=== PATIENT | male | born 1970 | race Caucasian/White ===

== ENCOUNTER 2016-10-19 13:26 | Emergency (ER) | payer BC, OTHER ==
[2016-10-19 13:45] VITALS: BP 144/93; PULSE 82; BMI 34.9
--- NOTE | 2016-10-19 14:08 | PDOC ---
History of Present Illness - General Chief Complaint: Pain, Acute Stated Complaint: TWISTED RIGHT KNEE AT WORK Time Seen by Provider: 10/19/16 13:49 - History of Present Illness Initial Comments: 10/19/16 14:05 46-year-old male with a past medical history of hypertension and gout He is not ALLERGIC to any medications Today he was coming out of his truck at work, and fell, torquing his right leg, and landing onto his heel, with the force translating up into his right knee and leg He did not fall to the ground or strike his head He is complaining of pain primarily around his right knee, more on the lateral aspect He denies any hip pain or back pain He denies any heel pain or foot pain He denies any numbness or tingling in his leg He denies any other injury and the remainder of the review of systems is negative Past History - Past Medical History Allergies/Adverse Reactions: Allergies Allergy/AdvReac Type Severity Reaction Status Date / Time No Known Allergies Allergy Verified 10/19/16 13:29 HTN: Yes Other medical history: GOUT - Psycho/Social/Smoking Cessation Hx Anxiety: No Suicidal Ideation: No Smoking History: Never smoked Have you smoked in the past 12 months: No Information on smoking cessation initiated: No Hx Alcohol Use: Yes (SOCIAL) Drug/Substance Use Hx: No Substance Use Type: Alcohol *Physical Exam - Vital Signs Last Vital Signs Temp Pulse Resp BP Pulse Ox 99.7 F H 82 16 144/93 100 10/19/16 13:28 10/19/16 13:28 10/19/16 13:28 10/19/16 13:28 10/19/16 13:28 - Physical Exam Comments: 10/19/16 14:07 Physical exam Last Vital Signs Temp Pulse Resp BP Pulse Ox 99.7 F H 82 16 144/93 100 10/19/16 13:28 10/19/16 13:28 10/19/16 13:28 10/19/16 13:28 10/19/16 13:28 Patient is alert and ambulatory and answering questions Head is normocephalic and atraumatic Right lower extremity- There is full range of motion of the right hip There is full range of motion of the right ankle There is no right heel or foot pain There is passive full range of motion of the right knee, with some tenderness laterally, and on the lateral upper calf at the knee There is no tenderness in the body of the calf The quadriceps and patellar tendons are intact The cruciates and the collaterals are intact There is also a negative anterior draw sign There is no tenderness on the patella All distal neurovascular is intact in the right lower extremity and right foot ED Treatment Course - RADIOLOGY Radiology Studies Ordered: Category Date Time Status KNEE 3 POS-RIGHT [RAD] Stat Radiology 10/19/16 13:57 Ordered Medical Decision Making - Medical Decision Making 10/19/16 14:56 Right knee series The sunrise view shows a slight subluxation of the patella-this could be just projectional No acute fracture or bony destruction is seen There is no effusion or swelling Impression-strain/ligamentous injury of right knee Glenn canrody monk, orthopedics follow-up 10/19/16 15:00 Repeat temperature 99.3 *DC/Admit/Observation/Transfer Diagnosis at time of Disposition: Sprain of right knee, Sprain of right patella - Discharge Dispostion Disposition: HOME Condition at time of disposition: Stable - Referrals Referrals: Marty Mcguire MD [Staff Physician] - - Patient Instructions Additional Instructions: Glenn, elevate, use cane for ambulation to take the pressure off of that leg Please go down to Dr. Mcguire's office now to schedule a orthopedic follow-up appointment Tylenol or Motrin for discomfort Followup with your primary care physician in 24-48 hours Return immediately if you worsen in any way - Post Discharge Activity Work/School Note: Back to Work
[2016-10-19 15:01] VITALS: TEMP 99.3
== END 2016-10-19 15:05 | disposition home or self-care (01) ==
LOC: FER 13:26
DX: S83.91XA Sprain of unspecified site of right knee, initial encounter (principal); S83.8X1A Sprain of other specified parts of right knee, initial encounter; X58.XXXA Exposure to other specified factors, initial encounter; Y93.9 Activity, unspecified; Y92.89 Other specified places as the place of occurrence of the external cause; Y99.0 Civilian activity done for income or pay; I10 Essential (primary) hypertension; M10.9 Gout, unspecified
CPT/HCPCS: 73562-TC-RT; 99283-25

== ENCOUNTER 2018-07-05 07:22 | Day surgery (SDC) | payer BC ==
[2018-06-28 11:44] VITALS: BMI 35.6
[2018-07-05] MEDS ORDERED: PROPOFOL 20 ML ONE ×2 (08:23)
[2018-07-05] MEDS ORDERED: LIDOCAINE HCL/PF 2% SDV 5ML VIAL ONE (08:23)
[2018-07-05 09:02] VITALS: TEMP 97.7
[2018-07-05 09:23] VITALS: BP 132/83; PULSE 73
--- NOTE | 2018-07-06 15:49 | PATH ---
Surgical Pathology Report Patient Name: RICHIE ABDUL [facility]. Rec. #: [id number] /Age/Gender: 1970 (Age: 48) / M Account: [id number] Location: [facility] Taken: 07/05/2018 Received: 07/05/2018 Reported: 07/06/2018 Physicians: Jose Lamar M.D. Specimen(s) Received A: DISTAL SIGMOID POLYP B: RECTOSIGMOID POLYP Clinical History Rule out colon cancer Postoperative diagnosis: Polyps Final Diagnosis A. DISTAL SIGMOID COLON, POLYP, BIOPSY: SESSILE SERRATED POLYP. B. RECTOSIGMOID, POLYP, BIOPSY: SESSILE SERRATED POLYP. Electronically Signed Mahogany Welch M.D. Gross Description A. Received in formalin, labeled "distal sigmoid colon polyp" are 2 rowley, irregular portions of soft tissue measuring 0.4 and 0.8 cm. in greatest dimension. The specimens are submitted in toto in one cassette. B. Received in formalin, labeled "rectosigmoid polyp" is a rowley, irregular portion of soft tissue measuring 0.2 cm. in greatest dimension. The specimen is submitted in toto in one cassette. 07/05/201807/05/2018
== END 2018-07-05 09:25 | disposition home or self-care (01) ==
LOC: FASU-ENDO 07:22
PROVIDERS: ATTEND Internal Medicine Gastroenterology
PROC: 0DBN8ZX Excision of Sigmoid Colon, Via Natural or Artificial Opening Endoscopic, Diagnostic (ICD-10-PCS; 2018-07-05)
PROC: 0DBN8ZX Excision of Sigmoid Colon, Via Natural or Artificial Opening Endoscopic, Diagnostic (ICD-10-PCS; principal; 2018-07-05 08:27)
DX: Z12.11 Encounter for screening for malignant neoplasm of colon (principal); D12.5 Benign neoplasm of sigmoid colon; D12.7 Benign neoplasm of rectosigmoid junction
CPT/HCPCS: 88305-TC

== ENCOUNTER 2020-12-09 07:10 | Day surgery (SDC) | payer BC ==
[2020-12-04 10:22] VITALS: BMI 31.4
[2020-12-09] MEDS ORDERED: MIDAZOLAM HCL 2 MG/2 ML SINGLE DOSE VIAL ONE (08:28)
[2020-12-09] MEDS ORDERED: PROPOFOL 20 ML ONE (08:28)
[2020-12-09] MEDS ORDERED: DEXAMETHASONE SOD PHOSPHATE 4 MG/1 ML VIAL ONE (09:18)
[2020-12-09] MEDS ORDERED: ONDANSETRON 4 MG/2 ML VIAL ONE (09:18)
[2020-12-09 09:59] VITALS: PULSE 64; TEMP 98.1
[2020-12-09 10:32] VITALS: BP 115/81
== END 2020-12-09 10:35 | disposition home or self-care (01) ==
LOC: FASU 07:10
PROVIDERS: ATTEND Orthopaedic Surgery Hand Surgery
PROC: 0LN70ZZ Release Right Hand Tendon, Open Approach (ICD-10-PCS; principal; 2020-12-09 09:28)
DX: M65.351 Trigger finger, right little finger (principal)